=== PATIENT | male | born 1970 ===

== ENCOUNTER 2024-04-02 05:48 | Day surgery (SDC) | payer OTHER ==
[2024-03-27 13:56] VITALS: BP 170/84
[~2024-04-02] VITALS: Ht 167.6 cm; Wt 77.1 kg
[~2024-04-02 05:48] MED LIST: NORVASC5 MG PO
[2024-04-02] MEDS ORDERED: CEFTRIAXONE SODIUM 2,000 MG VIAL ONE (08:14)
[2024-04-02] MEDS ORDERED: METRONIDAZOLE/SODIUM CHLORIDE 500 MG/100 ML PIGGYBACK IV ONE (08:15)
[2024-04-02] MEDS ORDERED: DIBUCAINE 30 GM TUBE ONE (08:17)
[2024-04-02] MEDS ORDERED: BUPIVACAINE HCL/MPF 0.5% 30ML VIAL ONE (08:17)
[2024-04-02] MEDS ORDERED: LIDOCAINE HCL 1%/EPINEPHRINE 20ML VIAL IJ ONE (08:18)
[2024-04-02] MEDS ORDERED: POVIDONE-IODINE 118 ML BOTT TOP ONE (08:18)
[2024-04-02] MEDS ORDERED: HEMOSTATIC MATRIX 1 KIT KIT TOP ONE (08:18)
[2024-04-02] MEDS ORDERED: HYDROGEN PEROXIDE 473 ML BOTTLE TOP ONE (08:55)
[2024-04-02] MEDS ORDERED: OXYCODONE HCL5 MG PO (10:51)
== END 2024-04-02 12:15 | disposition home or self-care (01) ==
LOC: CIR.AMB 05:48
PROVIDERS: ATTEND Surgery
DX: K60.321 Anal fistula, complex, initial (principal); K62.89 Other specified diseases of anus and rectum; I10 Essential (primary) hypertension

== ENCOUNTER 2024-07-30 07:27 | Day surgery (SDC) | payer OTHER ==
[2024-07-24 10:15] VITALS: BP 160/80
[~2024-07-30] VITALS: Ht 180.3 cm; Wt 77.1 kg
[~2024-07-30 07:27] MED LIST changes: +OXYCODONE HCL5 MG PO
[2024-07-30] MEDS ORDERED: METRONIDAZOLE/SODIUM CHLORIDE 500 MG/100 ML PIGGYBACK IV ONE (08:35)
[2024-07-30] MEDS ORDERED: CEFTRIAXONE SODIUM 2,000 MG VIAL ONE (08:35)
[2024-07-30] MEDS ORDERED: HEMOSTATIC MATRIX 1 KIT KIT TOP ONE (09:38)
[2024-07-30] MEDS ORDERED: POVIDONE-IODINE 118 ML BOTT TOP ONE (09:38)
[2024-07-30] MEDS ORDERED: HYDROGEN PEROXIDE 473 ML BOTTLE TOP ONE (10:09)
[2024-07-30] MEDS ORDERED: OXYCODONE HCL5 MG PO (11:07)
[2024-07-30] MEDS ORDERED: TAMSULOSIN HCL 0.4 MG CAP PO ONE ×2 (11:15→11:33)
== END 2024-07-30 14:20 | disposition home or self-care (01) ==
LOC: CIR.AMB 07:27
PROVIDERS: ATTEND Surgery
DX: K60.322 Anal fistula, complex, persistent (principal); K62.89 Other specified diseases of anus and rectum